=== PATIENT | male | born 1995 | race African-American/Black ===

== ENCOUNTER 2022-11-02 18:41 | Emergency (ER) | payer MEDICAID, SELFPAY ==
[2022-11-02 18:43] VITALS: BP 145/80; PULSE 90; RESP 16; TEMP 36.2; O2SAT 96; BMI 39.5
[2022-11-02 19:01] VITALS: BP 131/73; PULSE 87; RESP 18; O2SAT 96
[2022-11-02 19:02] VITALS: O2SAT 96
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
[2022-11-02 20:14] VITALS: BP 148/79; PULSE 72; RESP 18; O2SAT 98
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
[2022-11-02 20:29] LABS: Absolute Lymphocyte Count 1.05 X10^3/uL (0.83-4.51); Absolute Neutrophil Count 2.7 X10^3/uL (2.0-7.7); Basophil# 0.03 X10^3/uL; Basophil% 0.7 % (0-1); Eosinophil# 0.24 X10^3/uL; Eosinophils% 5.5 % (0-5); Hemoglobin 13.2 g/dL (13.0-16.5); Lymphocyte # 1.05 X10^3/ul (0.83-4.51); Lymphocyte % 23.9 % (19-41); Mean Corp Hgb Conc 30.7 g/dL (32-36); Mean Corpuscular Volume 81.3 fL (80-94); Mean Platelet Vol. 9.6 fl (6.2-12.0); Monocyte% 9.1 % (0-10); NRBC Flagged by Analyzer 0 % (0-5); Neutrophil # 2.67 X10^3/uL (2.7-7.7); Neutrophil % 60.6 % (47-70); Platelet Count 297 K/mm3 (150-450); RBC Distribution Width CV 13.7 % (11.6-14.6); RBC Distribution Width SD 40.8 fl (35.1-43.9); Red Blood Count 5.29 M/mm3 (4.6-6.2); White Blood Count 4.4 K/mm3 (4.4-11.0)
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
[2022-11-02 20:41] LABS: ALB/GLOB Ratio 0.9 RATIO (0.9-2.4); AST(SGOT) 24 U/L (15-37); Alanine Aminotransfer ALT/SGPT 30 U/L (16-61); Albumin, Serum 3.4 g/dL (3.2-5.0); Alkaline Phosphatase 56 U/L (45-117); Anion Gap 2 (5-15); BUN 13 mg/dL (7-18); BUN/Creat Ratio 12.3 RATIO (10-20); Calcium,Total 8.8 mg/dL (8.5-10.1); Chloride 111 mmol/L (98-107); Creatinine, Serum 1.06 mg/dL (0.70-1.30); EST Glomerular Filtration Rate 89 mL/min (>60); Est Glom Filt Rate - Afr Amer 107 mL/min (>60); Estimated Creatinine Clearance 101.27 ml/min; Globulin 3.6 g/dL (2.2-4.2); Glucose 100 mg/dL (74-106); Lipase 162 U/L (73-393); Potassium 4.2 mmol/L (3.5-5.1); Sodium Level 142 mmol/L (136-145)
[2022-11-02 20:51] LABS: International Normalized Ratio 1.1; Prothrombin Time (Protime)PT. 13.5 SECONDS (11.7-14.9)
[2022-11-02 20:52] LABS: Partial Thromboplast Time 27.3 Seconds (24.1-36.2)
== END 2022-11-02 22:07 | disposition home or self-care (01) ==
PROVIDERS: Emergency Provider Emergency Medicine; PCP Internal Medicine; Visit Provider Emergency Medicine
DX: S20.20XA Contusion of thorax, unspecified, initial encounter (principal); S63.602A Unspecified sprain of left thumb, initial encounter; R10.30 Lower abdominal pain, unspecified; M25.561 Pain in right knee; M25.562 Pain in left knee; V43.51XA Car driver injured in collision with sport utility vehicle in traffic accident, initial encounter; Z79.899 Other long term (current) drug therapy
CPT/HCPCS: 71260; 73110; 73130; 73562; 74177; 80053; 83690; 85025; 85610; 85730; 93005; 99285; Q9967; A4216